=== PATIENT | female | born 1990 | race Caucasian/White ===

== ENCOUNTER 2023-01-23 09:38 | Outpatient (CLI) | payer BC, SELFPAY ==
--- NOTE | 2023-01-23 09:45 | CRLHL7_ITS ---
For Patients: As a result of the Cures Act, medical imaging exams and procedure reports are released immediately into your electronic medical record. You may view this report before your referring provider. If you have questions, please contact your health care provider. INDICATION: First trimester scan, establish dates. COMPARISON: None. TECHNIQUE: Real-time owen-scale imaging of the pelvis was performed. FINDINGS: Sonographic imaging demonstrates a single living intrauterine gestation. The embryo demonstrates a regular cardiac rate measuring 174 beats per minute. The embryo`s crown-rump length measurement of 2.2 cm corresponds to a gestational age of 9 weeks 0 days with a sonographic due date of 08/28/2023. There is a normal-appearing yolk sac. There are no gross abnormalities noted within the embryo at this early state of development. The gestational sac has a normal appearance. There is no evidence of a perigestational hemorrhage. The amount of fluid within the sac appears appropriate for gestational age. The cervix is closed. The myometrium appears normal. The ovaries are of normal size. Corpus luteal cyst right ovary. There are no suspicious fluid collections noted in the cul-de-sac. IMPRESSION: Normal first trimester OB ultrasound exam. Gestational age calculated at 9 weeks 0 days with a sonographic due date of 08/28/2023. Dictated by Samuel Kolb MD @ 01/23/2023 11:04:16 AM (Electronically Signed)
== END 2023-01-23 09:39 | disposition home or self-care (01) ==
LOC: US 09:40
PROVIDERS: Visit Provider Registered Nurse
DX: Z34.91 Encounter for supervision of normal pregnancy, unspecified, first trimester (principal); Z3A.09 9 weeks gestation of pregnancy
CPT/HCPCS: 76817; 86703; 86803; 86850; 86900; 86901; 87086; 87340; 87491; 87591

== ENCOUNTER 2023-01-23 10:27 | Outpatient (CLI) | payer BC, SELFPAY ==
[2023-01-23 16:12] LABS: Chlamydia DNA Amplified* NOT DETECTED (No Detected); GC DNA Amplified* NOT DETECTED (No Detected)
== END 2023-01-23 10:28 | disposition home or self-care (01) ==
PROVIDERS: Visit Provider Physician Assistant
DX: Z34.91 Encounter for supervision of normal pregnancy, unspecified, first trimester (principal); Z3A.09 9 weeks gestation of pregnancy
CPT/HCPCS: 86592; 86703; 86762; 86787; 86803; 86850; 86900; 86901; 87086; 87340; 87491; 87591

== ENCOUNTER 2023-02-26 09:05 | Outpatient (CLI) | payer BC, SELFPAY | END 2023-02-26 09:06 | disposition home or self-care (01) | LOC: NFLDREF 02-28 04:39 | PROVIDERS: PCP Advanced Practice Midwife; Visit Provider Advanced Practice Midwife | DX: Z34.91 Encounter for supervision of normal pregnancy, unspecified, first trimester (principal); Z86.79 Personal history of other diseases of the circulatory system; Z87.59 Personal history of other complications of pregnancy, childbirth and the puerperium; Z3A.13 13 weeks gestation of pregnancy | CPT/HCPCS: 82565; 82570; 84156; 84450; 84460; 84520 ==

== ENCOUNTER 2023-06-04 08:32 | Outpatient (CLI) | payer BC, SELFPAY | END 2023-06-04 08:33 | disposition home or self-care (01) | LOC: NFLDREF 06-06 13:34 | PROVIDERS: PCP Advanced Practice Midwife; Referring Provider Advanced Practice Midwife; Visit Provider Advanced Practice Midwife | DX: Z34.93 Encounter for supervision of normal pregnancy, unspecified, third trimester (principal) | CPT/HCPCS: 86592 ==

== ENCOUNTER 2023-06-11 08:08 | Outpatient (CLI) | payer BC, SELFPAY | END 2023-06-11 08:09 | disposition home or self-care (01) | LOC: NFLDREF 09:53 | PROVIDERS: PCP Advanced Practice Midwife; Visit Provider Advanced Practice Midwife | DX: Z34.93 Encounter for supervision of normal pregnancy, unspecified, third trimester (principal); Z3A.30 30 weeks gestation of pregnancy | CPT/HCPCS: 82951; 82952 ==

== ENCOUNTER 2023-07-16 09:38 | Outpatient (CLI) | payer BC, SELFPAY | END 2023-07-16 09:39 | disposition home or self-care (01) | PROVIDERS: Visit Provider Physician Assistant | DX: Z34.83 Encounter for supervision of other normal pregnancy, third trimester (principal); Z3A.34 34 weeks gestation of pregnancy | CPT/HCPCS: 82239; 84450; 84460 ==

== ENCOUNTER 2023-07-30 09:58 | Outpatient (CLI) | payer BC, SELFPAY ==
[2023-07-31 19:51] LABS: Strep B DNA Probe NEGATIVE (Negative)
[2023-07-31 19:55] LABS: Strep B Pen/Amox Allergy No
== END 2023-07-30 09:59 | disposition home or self-care (01) ==
PROVIDERS: Visit Provider Advanced Practice Midwife
DX: Z34.83 Encounter for supervision of other normal pregnancy, third trimester (principal); Z3A.36 36 weeks gestation of pregnancy
CPT/HCPCS: 87081; 87653

== ENCOUNTER 2023-08-20 14:25 | Inpatient (IN) | payer BC, SELFPAY ==
[2023-08-20] VITALS (17 sets, daily range): BP systolic 122–141; BP diastolic 76–85; PULSE 73–91; RESP 16–18; TEMP 36.4–37.3; O2SAT 98–100; BMI 31.7
--- NOTE | 2023-08-20 15:21 | P.LDBA_ITS ---
Subjective History of Present Illness Date Seen: 08/20/23 Narrative: Patient is being admitted to Labor and Delivery for PPROM. She is a 33 year old at 39.2 weeks gestation. She was seen yesterday in triage for leaking of fluid. She had a negative AmniSure and an FRANCI done. These were negative for rupture. She has continued to have small amounts of leaking clear fluid since that time. She was seen in the clinic today and reevaluated for rupture by AmniSure which was positive today. Discussed plan of care going forward, with her likely prolonged time since rupture would recommend augmentation with IV Pitocin. Risk, benefits and alternatives were discussed with the patient. She agrees to IV Pitocin. Her full history and physical was done on 08/06/23 by Lopez Foster CNM. Please see this for details. Specific Issues/Plans H&P 08/06/23 by Lopez Foster CNM 1. History of gestational hypertension, baseline labs, WNL except mildly elevated AST 42 9/6 AST 27 2. Depression and anxiety, managed by Dr. Rocio Gonzalez,psychiatrist Lexapro 10 mg 3. Nausea and vomiting Vitamin B6 and Unisom PRN Zofran script sent 02/25 4. COVID 11/18/2022 5. GERD, omeprazole 6. Varicella nonimmune Immunized 7. Elevated 1 hr GCT (173). 3 hr GTT: 1 elevated value, PASSED 8. Pruritus, Possible PUPPS Mostly on abdomen, in stretch dupree 07/16/23: Cholestasis labs: normal AST, ALT and total bile acids Flu shot: 01/23/23 and 08/13/23 Covid: Vaccinated TDAP: 06/18/2023 OB - Problem Based A/P Additional Plan (1) premature rupture of membranes (PPROM) with unknown onset of labor: Status: Acute Plan Assessment:??G2 1 at 39.2 weeks gestation?? GBS negative, A+? Patient is jaya rarely at this time. ?? Labor type: augmented, Early labor? Category 1 FHR pattern.? complicated by: 1. History of gestational hypertension, baseline labs, WNL except mildly elevated AST 42 9/6 AST 27 2. Depression and anxiety, managed by Dr. Rocio Gonzalez,psychiatrist Lexapro 10 mg 3. Nausea and vomiting Vitamin B6 and Unisom PRN Zofran script sent 02/25 4. COVID 11/18/2022 5. GERD, omeprazole 6. Varicella nonimmune Immunized 7. Elevated 1 hr GCT (173). 3 hr GTT: 1 elevated value, PASSED 8. Pruritus, Possible PUPPS Mostly on abdomen, in stretch dupree 07/16/23: Cholestasis labs: normal AST, ALT and total bile acids Labor complicated by: PPROM, clear fluid? Plan:?? * ?Admit to L & D? * IV access: Per Protocol * Monitoring per policy: continuous ? * Candidate for analgesia of choice.? Planning epidural for pain management * Augmentation with IV Pitocin per protocol, when staff educator able to start * Patient encouraged to reposition and ambulate to promote physiologic labor and . * Anticipate ? Delivery/Labor/Induction Plan Plan: induction Induction method: per pitocin protocol OB Exam Physical Exam Vital signs: Temp Pulse BP Pulse Ox 98.2 F 73 128/84 98 08/20/23 14:48 08/20/23 15:08 08/20/23 15:08 08/20/23 15:08 Narrative: Vitals Reviewed Constitutional:? Alert and oriented x3 HEENT:? Normocephalic, atraumatic Neck:? Supple Lungs:? Clear to auscultation bilaterally Heart:? Regular rate and rhythm, no murmur, rub or gallop Abdomen:? Soft, nontender, and gravid. Vertex by Jesse's, confirmed with cervical exam. Extremities:? No edema or erythema Cervix: 3cm/70%/-2 station/vertex by Lopez Foster CNM in clinic NST: 130 bpm/moderate variability/+ accelerations/ occasional early decelerations/irregular contractions Detailed Labor and Delivery Exam Patient Gravid: Yes
[2023-08-20 16:42] LABS: Basophils Absolute Auto 0.01 K/uL (0.00-0.30); Basophils Percent Auto 0.1 % (0.0-3.0); Eosinophils Absolute Auto 0.04 K/uL (0.00-0.50); Eosinophils Percent Auto 0.4 % (0.0-7.0); Hematocrit 37.1 % (33.0-51.0); Immature Granulocytes Abs Auto 0.01 K/uL (0.00-0.30); Immature Granulocytes Pct Auto 0.1 %; Lymphocytes Absolute Auto 2.03 K/uL (0.90-2.90); Lymphocytes Percent Auto 22.2 % (20-44); Mean Corpuscular HGB Conc 32 gm/dL (32-36); Mean Corpuscular Hemoglobin 29 pg (26-34); Mean Corpuscular Volume 90 fL (80-100); Neutrophils Absolute Auto 6.51 K/uL (1.7-7.0); Neutrophils Percent Auto 71.2 % (42.0-72.0); Platelet Count* 280 K/uL (140-440); RDW Coefficient of Variation % 14.6 % (11.5-15.5); Red Blood Count 4.12 m/uL (4.00-5.20); White Blood Count* 9.15 K/uL (4.50-11.00)
[2023-08-20 16:45] LABS: Slide Review Reflex No
[2023-08-20] MEDS: LACTATED RINGERS 1000 ML 1,000 ML 125 ML IV (16:54)
[2023-08-20] MEDS: OXYTOCIN 30 unit/500 ML in NS 30 UNIT/500 ML BAG IVPB (16:54)
[2023-08-21] VITALS (21 sets, daily range): BP systolic 116–151; BP diastolic 70–96; PULSE 71–116; RESP 16–18; TEMP 36.6–36.9; O2SAT 88–98
[2023-08-21] MEDS: LACTATED RINGERS 1000 ML 1,000 ML 125 ML IV (00:22)
[2023-08-21] MEDS: ACETAMINOPHEN 500 MG TABLET 1000 MG PO ×3 (03:11→21:01)
--- NOTE | 2023-08-21 03:25 | W.PM.VAGDE_ITS ---
OB Procedure Vag Delivery Mother Details Mother Details: The patient is a 33 year-old, 2, Para 1, admitted on 08/20/23 at 39.2 Days gestation. She was seen the day prior in triage for possible SROM. All testing was negative for rupture. Returned to clinic appointment on 08/20/23 continuing to have leaking. AmniSure in clinic was positive and she was admitted for PROM and augmentation of labor. : 2 Para: 2 Weeks Gestation: 39.3 Admission Date: 08/20/23 Additional Details Amniotic Membrane Status: SROM Amniotic Membrane Rupture Date: 08/19/23 Amniotic Membrane Rupture Time: 06:00 Amniotic Membrane Fluid Description: Clear Analgesia/Anesthesia Type: None Waterbirth: No Pitcoin: Yes Intrapartal Events: Labor Augmentation Labor Onset: 01:06 Complete: 02:25 Pushin:25 Heart: heart tones during second stage were Category II, FHR 150-160's with drop to 115-120's just prior to delivery. Moderate variability throughout, occasional variable deceleration noted. Delivery Details Delivery Date: 08/21/23 Delivery Time: 02:45 Route of delivery: Gender: Female Infant Viability: Alive; Heart Rate Present Position at Delivery: OA Delivery Details: Amarilys was started on IV Pitocin for augmentation of labor after PROM with clear fluid. She progressed normally, was checked at 0120 and found to have a forebag. AROM of forebag per pt request and then she progressed to complete not long after. ? She became complete at 0225.??She pushed in hands and knees position effectively.? Spontaneous vaginal delivery at 0245 of?a viable? female infant.??Delivered in vertex OA position.??Shoulders delivered easily.? Spontaneous cry noted.??Infant passed to mother between her legs and mother then turned to supine position with baby to her abdomen. ??Cord?was clamped and cut after a 5+ minute delay.??Nose a nd mouth were bulb suctioned.? Shoulder dystocia: no? Nuchal cord: no? Meconium stained?fluid: no? Water : no? ? ? Placenta delivered spontaneously and?complete?at 0252 with a?3 vessel?cord.?? Bleeding controlled with fundal massage and?pitocin?for AMTSL.? ? Lacerations:? intact perineum. Small?left?periurethral laceration just below clitoris, not bleeding, not repaired? ? Bleeding?post delivery?was: minimal . ?The fundus was firm to palpation.?? ? Sponge,?lap?and needles counts are correct.? Mother and were stable after delivery.? 1 Minute Interval Total Score: 8 5 Minute Interval Total Score: 8 Additional Details Shoulder Dystocia: No Placenta Delivery Time: 02:52 Placental Delivery Description: Spontaneous Procedure Done: Global Blood Loss: 100 Laceration: Periurethral - 1st Degree Blood Loss Measurement Type: EBL Bakri Used: No Sponge/Need Count Correct: Yes Cord Vessel Description: 3 Vessels Event Summary Status: Mother and infant were stable after delivery. Disposition: floor
[2023-08-21] MEDS: IBUPROFEN 600 MG TABLET PO ×2 (08:18→15:09)
[2023-08-21] MEDS: DOCUSATE SODIUM 100 MG CAPSULE PO (08:18)
[2023-08-21] MEDS: FERROUS SULFATE 325 MG TABLET PO (08:18)
[2023-08-22] MEDS: IBUPROFEN 600 MG TABLET PO (00:11)
[2023-08-22 00:20] VITALS: BP 128/86; PULSE 80; RESP 16; TEMP 36.6; O2SAT 98
[2023-08-22 05:01] VITALS: BP 109/71; PULSE 79; RESP 16; TEMP 36.6; O2SAT 97
--- NOTE | 2023-08-22 05:06 | PC.NURSE ---
Pt and spouse in room with baby. VSS she is up independantly. Voiding without difficulty. Tylenol and Ibuprofen is covering her pain. Baby nursing well every 2-3 hrs for 30 min each time.
[2023-08-22 06:53] LABS: Hemoglobin* 10.4 gm/dL (12.0-16.0)
--- NOTE | 2023-08-22 07:36 | PM.OBDSVD1 ---
DS: Providers Provider Date Seen: 08/22/23 Date of admission: 08/20/23 14:25 Primary care physician: Not a Local Provider Admitting Clinician: Yvette Bonds CNM Attending Physician on discharge: Yvette Bonds CNM Date of Discharge: 08/22/23 DS: Diagnosis Discharge Diagnosis (1) Lactating mother: Status: Acute (2) care following vaginal delivery: Status: Acute (3) Anxiety and depression: Status: Chronic Exam Narrative: Exam Narrative: GENERAL APPEARANCE:? normal affect, alert, no distress? MOOD:? appropriate? CHEST:? clear to auscultation and percussion? HEART:? regular rate and rhythm? ABDOMEN:? soft, non-tender the uterine fundus is 2 cm Below Umbilicus, Midline and is appropriate for the stage of recovery. ? PERINEUM:? mild edema of the perineum, there is a 1st degree not repaired that is healing well.? EXTREMITIES:? normal and no edema? Patient has no complaints? No active bleeding?? Doing well? She is requesting discharge home.? Const: Vital Signs, click to edit/add: Vital Signs - 24 hr 08/21/23 08:19 08/21/23 13:05 08/21/23 17:31 Temperature 98.2 F 98.3 F 98.4 F Pulse Rate [Pulse Oximeter] 72 83 71 Respiratory Rate 16 16 16 Blood Pressure [Le ft Arm] 136/86 117/77 132/84 Pulse Oximetry 98 97 97 Oxygen Delivery Me thod Room Air Room Air Room Air 08/21/23 20:15 08/22/23 00:20 08/22/23 05:01 Temperature 98 F 98 F 97.8 F Pulse Rate [Pulse Oximeter] 84 80 79 Respiratory Rate 18 16 16 Blood Pressure [Le ft Arm] 119/78 128/86 109/71 Pulse Oximetry 98 97 Oxygen Delivery Me thod Room Air Room Air Room Air Documenting provider has reviewed patient's vital signs: yes OB - DS: Summary Hospital Course Hospital Course: The patient is a 33 year old G 2 P 2 at 39.3 weeks gestation that was admitted to the Center on 08/20/23 for PROM. She had an uncomplicated vaginal delivery. She delivered a viable female . She is breast feeding and feels that it is going well. the patient has done well. She is passing gas but has not had a bowel movement. She is planning condoms for control but is also considering trying a Mirena IUD. She is requesting discharge home today. Peripartum Data delivery method: Vaginal Laceration description: Periurethral - 1st Degree (not repaired) Episiotomy description: None complications: none Gender: Female Infant Discharge Plan: Home Status at Discharge Functional status at discharge: independent ambulation Overall status at discharge: patient is progressing back to baseline Time Spent with Patient Time attestation: Total time spent providing and/or coordinating discharge services: Discharge Plan Discharge Disposition: Home, Self-Care Date of Admission: 08/20/23 14:25 Attending Provider on Discharge: Yvonne Foster Primary Care Provider: Provider,Not a Local Condition: Stable Anticipated Discharge Date/Time: 08/22/23 10:00 Discharge Medications: New ibuprofen 600 mg Tablet 600 mg PO Q6H PRNQty: 30 0RF Continued escitalopram oxalate 10 mg tablet 10 mg PO DAILY prenat.vits,jagdish,[id number] Tablet 1 tab PO QDAY Colace Clear 50 mg capsule 50 mg PO BID omeprazole 20 mg capsule,delayed release(DR/EC) 20 mg PO QDAY PRN Zyrtec 10 mg capsule 10 mg PO QDAY PRN diphenhydramine HCl [Benadryl] 25 mg capsule 25 mg PO QHS PRN fluticasone propionate 50 mcg/actuation spray,suspension 1 spray intranasal QDAY Rx Instructions: administer into each nostril Discontinued Unisom (doxylamine) 25 mg tablet 25 mg PO QHS PRN pyridoxine (vitamin B6) 25 mg tablet 25 mg PO QDAY ferrous sulfate [Feosol] 325 mg (65 mg iron) tablet 325 mg PO QDAY polyethylene glycol 3350 [Miralax] 17 gram/dose powder 4 g PO QDAY PRN aspirin 81 mg tablet,chewable 81 mg PO QDAY ondansetron HCl 4 mg tablet 4 mg PO Q8-12H PRN (Reason: nausea and vomiting) Qty: 14 1RF Discharge Orders: Discharge Order (Routine); Ordered 08/22/23 Ordered By: Yvonne Foster Patient Education: OB Vaginal/Breast Feeding Additional Instructions: Discharge instructions were reviewed with the patient including signs and symptoms of infection and home going medications.? Lifting Restrictions: 20 pounds for 6? weeks? ?? Do not drive while taking narcotic pain meds.? Off Work or School for 6 weeks.? ?? Symptoms to report to doctor:? -Bleeding that saturates more than one pad per hour? -Passing clots larger than the size of a golf ball? -Pain not relieved by prescribed medication? -Fever above 100.4 degrees Fahrenheit? -A foul vaginal odor? -Difficulty in emotions, mood and functions? -Thoughts of hurting yourself and/or ? -Painful, reddened area in your breast? -Any drainage, redness or tenderness in your IV/epidural site? -Severe headache that doesn't improve after taking medications? -Changes in vision, including temporary loss of vision, blurred vision, and/or light sensitivity? -Upper abdominal pain (usually under ribs on the right side)? -Decrease in urination or painful, frequent urinating? -Chest pain? -Shortness of breath? -Tenderness or pain with redness and/swelling in the calf(s) of your leg? ?? Follow Up in clinic in 2 and 6 weeks.? ?? consultation services are available to all mothers and babies for the first year after delivery.? To make an appointment, please call [phone].? Activity Level: Activity as Tolerated Discharge Diet: Regular Follow Up Appointments: Provider,Not a Local [Primary Care Provider] - Maricruz Jennings CNM [Certified Nurse [employer] Justice] - Amarilys Martinez CNM [Certified Nurse [employer] Justice] - Yvonne Foster CNM [Certified Nurse [employer] Justice] - Yvette Bonds CNM [Certified Nurse [employer] Justice] - [facility]: [facility] Inst[facility]
[2023-08-22 08:20] VITALS: BP 120/84; PULSE 79; RESP 16; TEMP 36.9; O2SAT 100
[2023-08-22] MEDS: DOCUSATE SODIUM 100 MG CAPSULE PO (08:45)
[2023-08-22] MEDS: FERROUS SULFATE 325 MG TABLET PO (08:45)
== END 2023-08-22 12:20 | disposition home or self-care (01) | DRG 560 ==
PROVIDERS: Admitting Provider Advanced Practice Midwife; Visit Provider Advanced Practice Midwife
DX: O42.02 Full-term premature rupture of membranes, onset of labor within 24 hours of rupture (principal); O99.344 Other mental disorders complicating childbirth; F32.A Depression, unspecified; F41.9 Anxiety disorder, unspecified; O70.0 First degree perineal laceration during delivery; K21.9 Gastro-esophageal reflux disease without esophagitis; O26.893 Other specified pregnancy related conditions, third trimester; L29.9 Pruritus, unspecified; Z37.0 Single live birth; Z3A.39 39 weeks gestation of pregnancy
CPT/HCPCS: 36415; 59025; 76815; 81003; 81015; 84112; 85018; 85025; 86850; 86900; 86901; 87086; 99213; A9270; J7120

== ENCOUNTER 2023-09-12 11:13 | Outpatient (CLI) | payer BC, SELFPAY ==
--- NOTE | 2023-09-12 17:00 | P.LACCB_ITS ---
Consult Note - Mom Date of Visit Date of visit: 09/12/23 provider contracting consultant: Grisel Pressley Visit Code: Visit Patient's Information Phone number: [phone] : 2 Para: 2 Allergies cefaclor [From Ceclor] Allergy (Intermediate, Verified 09/04/23 08:54) Rash tuberculin, purified protein deriva Allergy (Intermediate, Verified 09/04/23 08:54) Rash vancomycin Allergy (Verified 09/04/23 08:54) Rash Mother's Medical History: Medical History (Updated 09/04/23 @ 12:56 by Yvette Bonds CNM) PROM (premature rupture of membranes) ?O42.90 - Premature rupture of membranes, unspecified as to length of time between rupture and onset of labor, unspecified weeks of gestation (ICD-10) ADHD (attention deficit hyperactivity disorder) ?F90.9 - Attention-deficit hyperactivity disorder, unspecified type (ICD-10) Anxiety and depression ?F41.9 - Anxiety disorder, unspecified (ICD-10) ?F32.A - Depression, unspecified (ICD-10) Gestational hypertension (2020) ?O13.9 - Gestational [-induced] hypertension without significant proteinuria, unspecified trimester (ICD-10) Delivery Information Delivery type: Vaginal Weeks Gestation: 39.3 Gestational Age: AGA Weight: 3.71 kg Discharge Weight: 3.532 kg Baby's Information Baby's Age at Visit: 3 weeks Baby's Provider or Clinic: Dr. Nowak Jaundice: No Reason for Consult Reason for Consult: difficulty latching Past Experience Past Experience: Yes (nursed her older child about two years) Current Frequency of Day Feedings: 1.5 - 3 Frequency of Night Feedings: 3 - 4 Both Breasts: Yes Suck: stong Latch: shallow Length of Time: 15 - 20 minutes Goals: two years Pumping Pumping: Yes (every few days) Quantity Pumped: 4 - 5 oz total Supplementing EMB Supplement: Yes (baby takes a 2 oz bottle overnight) Formula Supplement: No Baby Elimination Number of Wet Diapers a Day: 8 - 10 Number of BM a Day: 6 - 8, yellow and seedy Breast/Nipple Condition Breast Information: WNL Maternal Nipple Condition - Left: Common Nipple Maternal Nipple Condition - Right: Common Nipple Sore Nipples: No Onsite Pre-Feed weight: 3.71 kg Post-Feed weight: 3.532 kg Milk Transferred (mL): 52 Assessments/Interventions Assessments/Interventions: Met with mom and this now 3 week old ex- term AGA baby for consult. Mom reports most of the time goes smoothly, but at times baby seems to get really frustrated when mom tries to nurse and she shakes her head or can't seem to find the nipple. Mom reports that baby nurses every 1.5 - 3 hours during the day and every 3 - 4 hours overnight. Nursing sessions last 15 - 25 minutes and mom offers both sides. She states baby has a shallow latch, but it doesn't hurt. Mom pumps every few days with her Spectra pump getting 4 - 5 oz total each time Dad gives one 2 oz bottle overnight for one of the feedings so mom can get extra rest. Breasts WNL- symmetrical with rounded lower quadrants, intramammary distance < 1.5 inches. Nipples are everted and don't flatten or invert on compression, no damage noted. Baby has gained 39 grams/day since her last visit on 09/05. Mom denies any caput/cephalohematoma at delivery and reports baby was favoring turning to the left but she's been working with her and thinks this has improved (mom is a PT in [place]). Baby's palate is a little high. Her upper frenulum appears to be WNL as her upper lip is easy to flange, the gums don't lissette, and no suck blister noted. She has a strong suck on a finger but her tongue doesn't extend past the gum line consistently. The tongue has fairly good lateralization to the right, but more canoeing to the left. Her lower frenulum wasn't visualized, posterior? Mom latched baby to the left side and the latch looked shallow, mom denied any discomfort. There was some improvement when mom exaggerated pointing nipple to nose but only temporarily as baby slipped back after a minute or so. She nursed 10 - 15 minutes before mom unlatched her and offered the other side. Her nipple wasn't misshapen and looks to be more elastic than average. On the second side, baby had more trouble finding the nipple but this resolved when she was given a finger and a chance to reorganize. Baby nursed another 10 minutes before getting sleepy and mom unlatched her. She was weighed and had transferred 52 ml. We practiced an exercise to hopefully help baby learn to extend her tongue over the gumline more consistently. Afterwards she was fussy so suggested mom put her back on the breast and she nursed about another 10 minutes but was not reweighed. Plan: 1. Encouraged mom to continue nursing ALD (usually every 2 - 4 hours at this age). Offer both sides and she may need to help baby by supporting her breast and pointing nipple to nose until she gets a little older. If they are really struggling, could offer a finger/pacifier (something firmer), the switch to the breast. 2. Continue her current pumping and supplementing schedule. 3. Reviewed that babies her age usually need between 3 - 4 oz at each feeding. She transferred almost 2 oz at this feeding, but overall her weight gain is really good so this was probably just a less aggressive feeding. 4. Encouraged mom to practice the tongue exercise. Will f/u in 2 weeks to see how things are going. If there's no improvement or things are worse could consider a pediatric dental evaluation. Meds Home Medications and Allergies Home Medications Medication Instructions Recorded Confirmed Type escitalopram oxalate 10 mg tablet 10 mg PO DAILY 01/15/23 09/04/23 History prenat.vits,jagdish,[id number] 1 tab PO QDAY 01/23/23 09/04/23 History docusate sodium 50 mg capsule 50 mg PO BID 02/19/23 09/04/23 History (Colace Clear) cetirizine 10 mg capsule (Zyrtec) 10 mg PO QDAY PRN 03/19/23 09/04/23 History fluticasone propionate 50 1 spray intranasal QDAY 03/19/23 09/04/23 History mcg/actuation nasal spray,suspension cholecalciferol (vitamin D3) 125 125 mcg PO QDAY 09/04/23 09/04/23 History mcg (5,000 unit) capsule Allergies Allergy/AdvReac Type Severity Reaction Status Date / Time cefaclor [From [facility]] Allergy Intermediate Rash Verified 09/04/23 08:54 tuberculin, purified protein Allergy Intermediate Rash Verified 09/04/23 08:54 deriva vancomycin Allergy Rash Verified 09/04/23 08:54
== END 2023-09-12 11:14 | disposition home or self-care (01) ==
LOC: OB LAC 11:13
PROVIDERS: Visit Provider Advanced Practice Midwife
DX: Z39.1 Encounter for care and examination of lactating mother (principal)
CPT/HCPCS: 99211